=== PATIENT | male | born 1990 | race Two or more races ===

== ENCOUNTER 2020-06-19 07:58 | Emergency (ER) | payer SELFPAY ==
[~2020-06-19] VITALS: Ht 170.2 cm; Wt 83.8 kg
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
[2020-06-19] MEDS ORDERED: SODIUM CHLORIDE 0.9% 1,000ML IVBOLUS ONE (09:00)
[2020-06-19] MEDS ORDERED: ONDANSETRON 2MG/ML, 2ML IVPush ONE (09:00)
[2020-06-19] MEDS ORDERED: ONDANSETRON 2MG/ML, 2ML ONE (09:03)
[2020-06-19] MEDS ORDERED: MORPHINE SULFATE 4 MG/ML, 1ML ONE ×2 (09:03→11:57)
[2020-06-19] MEDS ORDERED: MAALOX/HYOSCYAMINE/LIDOCAINE 45 ML BTL ONE (09:04)
[2020-06-19 09:08] LABS: BASOPHILS % (AUTO) 1 % (0-1); EOSINOPHILS % (AUTO) 4 % (1-7); LYMPHOCYTES % (AUTO) 13 % (22-44); MEAN CORPUSCULAR HGB CONC 34.3 g/dL (33.2-36.2); MEAN PLATELET VOLUME 7.5 fL (7.4-10.4); MONOCYTES % (AUTO) 10 % (2-9); NEUTROPHILS % (AUTO) 73 % (42-75); PLATELET COUNT 283 x10^3/uL (130-400); RED BLOOD COUNT 5.84 x10^6/uL (4.38-5.82); RED CELL DISTRIBUTION WIDTH 14.2 % (9.4-14.8)
[2020-06-19 09:10] LABS: MD NO
[2020-06-19 09:16] LABS: ALANINE AMINOTRANSFERASE 30 U/L (12-78); ALBUMIN 3.8 g/dL (3.4-5.0); ANION GAP 7 mmol/L (5-15); CALCIUM 8.8 mg/dL (8.5-10.1); CHLORIDE 108 mmol/L (98-107); CREATININE 0.89 mg/dL (0.7-1.3)
[2020-06-19] MEDS: MORPHINE SULFATE 4 MG/ML, 1ML IVPush PRN ×2 (09:17→12:00)
[2020-06-19 09:20] LABS: ALKALINE PHOSPHATASE 69 U/L (45-117); BILIRUBIN,TOTAL 0.4 mg/dL (0.2-1.0); TOTAL PROTEIN 7.2 g/dL (6.4-8.2); TROPONIN I 0.017 ng/mL (0.000-0.045)
[2020-06-19] MEDS ORDERED: SODIUM CHLORIDE FLUSH 10ML SYR IVF ONE (09:30)
[2020-06-19] MEDS ORDERED: MAALOX/HYOSCYAMINE/LIDOCAINE 45 ML BTL PO ONE (09:30)
[2020-06-19 11:54] LABS: TROPONIN I 0.015 ng/mL (0.000-0.045)
[2020-06-19 13:53] VITALS: BP 138/70
== END 2020-06-19 13:56 | disposition home or self-care (01) ==
LOC: ED 08:25
DX: I30.0 Acute nonspecific idiopathic pericarditis (principal); R10.13 Epigastric pain; R11.2 Nausea with vomiting, unspecified
CPT/HCPCS: 36415; 76700; 80053; 83690; 84484; 85025; 93005; 96361; 96374; 96375; 96376; 99285; J2270; J2405; J7030

== ENCOUNTER 2020-08-26 10:36 | Emergency (ER) | payer SELFPAY ==
[~2020-08-26] VITALS: Ht 170.2 cm; Wt 85.0 kg
[2020-08-26 10:55] VITALS: BP 122/79
[2020-08-26] MEDS ORDERED: ONDANSETRON ODT 4 MG PO ONE (16:00)
== END 2020-08-26 16:24 | disposition home or self-care (01) ==
LOC: ED 13:48
DX: S20.211A Contusion of right front wall of thorax, initial encounter (principal); R07.81 Pleurodynia; W18.30XA Fall on same level, unspecified, initial encounter; Y93.89 Activity, other specified; Y92.009 Unspecified place in unspecified non-institutional (private) residence as the place of occurrence of the external cause; Y99.8 Other external cause status
CPT/HCPCS: 99283

== ENCOUNTER 2020-12-07 07:25 | Emergency (ER) | payer OTHER ==
[~2020-12-07] VITALS: Ht 170.2 cm; Wt 83.1 kg
[2020-12-07 10:59] VITALS: BP 126/85
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
[2020-12-07] MEDS ORDERED: KETOROLAC 30 MG/1 ML ONE (11:29)
[2020-12-07] MEDS ORDERED: KETOROLAC 30 MG/1 ML IM ONE (11:30)
--- NOTE | 2020-12-07 11:41 | NUR ---
PT MEDICATED WITH TORADOL PER ORDERS FOR BODY ACHES. D/C INSTRUCTIONS, MEDS & F/U APPT RV'WD WITH PT. WORK NOTE PROVIDED. INSTRUCTIONS ON QUARANTINING PROVIDED. INSTRUCTED PT TO RETURN TO ED FOR WORSENING SOB OR OTHER CONCERNING SYMPTOMS. AMBULATED OUT OF ED WITH SIGNIFICANT OTHER WITHOUT DIFFICULTY.
== END 2020-12-07 11:42 | disposition home or self-care (01) ==
LOC: ED 11:37
DX: U07.1 COVID-19 (principal); J06.9 Acute upper respiratory infection, unspecified; B34.9 Viral infection, unspecified; R19.7 Diarrhea, unspecified
CPT/HCPCS: 71045; 96372; 99284; J1885; U0003; U0005

== ENCOUNTER 2020-12-12 17:24 | Emergency (ER) | payer SELFPAY ==
[~2020-12-12] VITALS: Ht 170.2 cm; Wt 81.0 kg
[2020-12-12 18:33] LABS: ALANINE AMINOTRANSFERASE 34 U/L (12-78); ALBUMIN 3.4 g/dL (3.4-5.0); ANION GAP 7 mmol/L (5-15); CALCIUM 8.2 mg/dL (8.5-10.1); CHLORIDE 102 mmol/L (98-107); CREATININE 1.06 mg/dL (0.7-1.3)
[2020-12-12 18:39] LABS: ALKALINE PHOSPHATASE 73 U/L (45-117); BILIRUBIN,TOTAL 0.5 mg/dL (0.2-1.0); D-DIMER (DIC) 0.21 ug/mlFEU (0.00-0.52); TOTAL PROTEIN 8.1 g/dL (6.4-8.2)
[2020-12-12 18:44] LABS: BASOPHILS % (AUTO) 0 % (0-1); EOSINOPHILS % (AUTO) 0 % (1-7); LYMPHOCYTES % (AUTO) 15 % (22-44); MEAN CORPUSCULAR HEMOGLOBIN 28.3 pg (27.5-34.5); MEAN CORPUSCULAR HGB CONC 34.1 g/dL (33.2-36.2); MEAN PLATELET VOLUME 7.6 fL (7.4-10.4); MONOCYTES % (AUTO) 7 % (2-9); NEUTROPHILS % (AUTO) 78 % (42-75); PLATELET COUNT 248 x10^3/uL (130-400); RED CELL DISTRIBUTION WIDTH 13.7 % (9.4-14.8)
[2020-12-12] MEDS ORDERED: ACETAMINOPHEN 500 MG TABLET PO ONE (19:30)
--- NOTE | 2020-12-12 19:43 | NUR ---
PT AMBULATORY TO ROOM FROM LOBBY. NAD.
[2020-12-12 19:45] VITALS: BP 111/71
[2020-12-12] MEDS ORDERED: ACETAMINOPHEN 500 MG TABLET ONE (19:47)
--- NOTE | 2020-12-12 19:52 | NUR ---
REPORT TO ENID Khan RN.
[2020-12-12] MEDS ORDERED: DEXAMETHASONE 4 MG/ML, 1ML ONE (20:15)
[2020-12-12] MEDS ORDERED: ONDANSETRON 2MG/ML, 2ML ONE (20:16)
[2020-12-12] MEDS ORDERED: DEXAMETHASONE 4 MG/ML, 1ML IVPush ONE (20:30)
[2020-12-12] MEDS ORDERED: SODIUM CHLORIDE FLUSH 10ML SYR IVF ONE (20:30)
[2020-12-12] MEDS ORDERED: ONDANSETRON 2MG/ML, 2ML IVPush ONE (20:30)
[2020-12-12] MEDS ORDERED: SODIUM CHLORIDE 0.9% 1,000ML IVBOLUS ONE (20:30)
--- NOTE | 2020-12-12 21:24 | NUR ---
NO CHANGE IN PT WALKING O2 THAN AT REST.
== END 2020-12-12 21:26 | disposition home or self-care (01) ==
LOC: ED 20:46
DX: U07.1 COVID-19 (principal); J18.9 Pneumonia, unspecified organism; R11.2 Nausea with vomiting, unspecified; R94.31 Abnormal electrocardiogram [ECG] [EKG]
CPT/HCPCS: 36415; 71045; 80053; 82728; 83605; 83615; 84145; 85025; 85049; 85379; 85384; 85610; 85730; 86140; 87040; 93005; 96361; 96374; 96375; 99285; J1100; J2405; J7030